=== PATIENT | female | born 1945 | race Caucasian/White ===

== ENCOUNTER 2024-06-27 09:59 | Observation (INO) ==
[~2024-06-27 09:59] MED LIST: NS 0.45% 1000 ml BAG 1,000 ML IV SCH; Naloxone 0.4 mg VIAL 0.4 mg/ml 1 ml VIAL IV PRN; Ondansetron 4 mg VIAL 2 MG/ML 2 ml VIAL IV PRN; ROPIVACAINE 5 MG/ML 30 ML BTL (0.5%) ONE; fentaNYL 100 mcg/2 ml 50 MCG/ML VIAL IV PRN
[2024-06-27] MEDS ORDERED: Dexamethasone IV 4 MG/ML VIAL 1 ml VIAL ONE ×2 (10:08→12:09)
[2024-06-27] MEDS ORDERED: Propofol 10 MG/ML 20 ML BTL ONE ×2 (10:22→14:29)
[2024-06-27] MEDS ORDERED: Midazolam 2 mg/2 ml VIAL 1 mg/ml 2 ml VIAL (2 mg) ONE ×2 (10:22→12:09)
[2024-06-27] MEDS ORDERED: fentaNYL 100 mcg/2 ml 50 MCG/ML VIAL ONE ×2 (10:22→12:09)
[2024-06-27] MEDS ORDERED: Lidocaine 2% PF 5 ML VIAL ONE ×2 (10:23→13:00)
[2024-06-27 10:42] LABS: Rapid COVID-19 Molecular Undetected (Undetected)
[2024-06-27] MEDS ORDERED: ceFAZolin 2 GM PREMIX 2 GM/50 ML BAG ONE (11:05)
[2024-06-27] MEDS ORDERED: Tranexamic Acid 1 GM/100ML BAG 2,000 MG/200 ML BAG IV ONE (11:05)
[2024-06-27] MEDS: Buffered Lidocaine 1% SYRIN 1 ml INTRADERM ONE (11:15)
[2024-06-27] MEDS: Lactated Ringers 1000 ml BAG 1,000 ML IV SCH ×2 (11:15→17:58)
[2024-06-27] MEDS ORDERED: Famotidine IV 10 MG/ML 2 ml VIAL (20 mg) ONE (12:09)
[2024-06-27] MEDS ORDERED: ROPIVACAINE 5 MG/ML 30 ML BTL (0.5%) ONE (12:09)
[2024-06-27] MEDS ORDERED: Metoclopramide 5 MG/ML VIAL (10 mg) ONE (13:17)
[2024-06-27] MEDS ORDERED: Ondansetron 4 mg VIAL 2 MG/ML 2 ml VIAL IV PRN (15:30)
[2024-06-27] MEDS ORDERED: Lactulose 30 ml UDC PO PRN (15:30)
[2024-06-27] MEDS ORDERED: Morphine 2 MG/ML SYRINGE IV PRN (15:30)
[2024-06-27] MEDS ORDERED: Calcium Carb (TUMS) 500 mg CHEW TAB PO PRN (15:30)
[2024-06-27] MEDS ORDERED: Ondansetron ODT 4 mg TAB 4 MG TAB PO PRN (15:30)
[2024-06-27] MEDS ORDERED: Magnesium Hydroxide LIQ 30 ML UDC PO PRN (15:30)
[2024-06-27] MEDS: Acetaminophen IV 1 GM/100ML 1,000 MG/100 ML BAG IV ONE (16:25)
[2024-06-27] MEDS: ceFAZolin 2 GM PREMIX 2 GM/50 ML BAG IV SCH (21:47)
[2024-06-27] MEDS: Venlafaxine XR 75 mg PO SCH (21:49)
[2024-06-28] MEDS: Magnesium Hydroxide LIQ 30 ML UDC PO SCH (02:31)
[2024-06-28 06:08] LABS: Hematocrit 41.4 % (35-45); Hemoglobin 13.8 g/dL (11.5-14.3); Mean Platelet Volume 8.4 fL (7.5-11.2); Platelet Count 197 10^3/uL (150-450)
[2024-06-28 06:34] LABS: Calcium 8.7 mg/dL (8.6-10.3); Creatinine, Serum 0.71 mg/dL (0.51-0.95); Potassium 4.6 mmol/L (3.5-5.0); eGFR CKD-EPI 85.4 (>60)
[2024-06-28] MEDS: Vitamin THERAPEUTIC TAB PO SCH (11:24)
[2024-06-28] MEDS: Fluticasone NASAL SPRAY 50MCG 16 gm SPRAY BTL INTRANASAL SCH (11:25)
[2024-06-28] MEDS: [UNRECOGNIZED DRUG - REMARK] PO SCH (11:25)
[2024-06-28] MEDS: Influenza Vaccine *TRI* 2024-25* 0.5 ML SYRINGE IM ONE (11:27)
[2024-06-28 13:55] VITALS: BP 119/79
== END 2024-06-28 15:00 | disposition home or self-care (01) ==
LOC: OR 09:59 → SSU 09:59
PROVIDERS: ADMIT Orthopaedic Surgery Adult Reconstructive Orthopaedic Surgery; ATTEND Orthopaedic Surgery Adult Reconstructive Orthopaedic Surgery

== ENCOUNTER 2024-06-30 15:58 | Observation (INO) ==
[2024-06-30 17:27] LABS: ABS Basophils 0.1 10^3/uL (0.0-0.1); ABS Lymphocytes 0.3 10^3/uL (1.0-4.8); ABS Monocytes 0.7 10^3/uL (0.0-0.9); ABS Neutrophils 13.4 10^3/uL (1.5-7.6); Hematocrit 42.7 % (35-45); Hemoglobin 14.4 g/dL (11.5-14.3); Lymphocyte % 2.4 %; Mean Corpuscular Hemoglobin 31.6 pg (27-33); Mean Corpuscular Hgb Conc 33.7 g/dL (31-36); Mean Corpuscular Volume 93.8 fL (80-97); Mean Platelet Volume 8.4 fL (7.5-11.2); Platelet Count 252 10^3/uL (150-450); Red Blood Count 4.55 10^6/uL (3.63-4.92); Red Cell Distribution Width 14.3 % (12-17); White Blood Count 14.5 10^3/uL (3.8-11.8)
[2024-06-30] MEDS: Ondansetron 4 mg VIAL 2 MG/ML 2 ml VIAL IV ONE (17:35)
[2024-06-30] MEDS: NS 0.9% 1000 ml BAG 1,000 ML IV ONE ×2 (17:59→21:31)
[2024-06-30 18:01] LABS: Albumin 3.9 g/dL (3.2-5.2); Albumin/Globulin Ratio 1.8 (1-3); C Reactive Protein 250.34 mg/L (<8.01); Calcium 9.1 mg/dL (8.6-10.3); Creatinine, Serum 0.6 mg/dL (0.51-0.95); Globulin 2.2 g/dL (2-4); Magnesium 1.8 mg/dL (1.9-2.7); Potassium 3.6 mmol/L (3.5-5.0); Total Bilirubin 1.1 mg/dL (0.2-1.0); Total Protein 6.1 g/dL (6.4-8.9); eGFR CKD-EPI 90.1 (>60)
[2024-06-30] MEDS: Pantoprazole VIAL 40 MG VIAL IV ONE (18:03)
[2024-06-30 19:44] LABS: Urine Appearance Clear; Urine Bilirubin Negative (Negative); Urine Blood Negative (Negative); Urine Color Light-Yellow; Urine Glucose Negative (Negative); Urine Ketones 1+ (Negative); Urine Nitrite Negative (Negative); Urine Protein Negative (Negative); Urine Specific Gravity 1.011 (1.002-1.030); Urine Urobilinogen Negative (Negative)
[2024-06-30] MEDS: Iohexol 300 (CONTRAST) 10 ML SDV IV ONE (20:44)
[2024-06-30] MEDS: Magnesium Sulfate 2 gm BAG 2 GM/50 ML BAG IVPB ONE (20:58)
[2024-06-30] MEDS: Droperidol 5 MG/2 ML 2 ML VIAL IV ONE (21:27)
[2024-06-30] MEDS: Pantoprazole 80 mg in NS BAG 80 MG/250 ML BAG IV ONE (21:52)
[2024-06-30 23:02] LABS: Hematocrit 36.7 % (35-45); Hemoglobin 12.6 g/dL (11.5-14.3)
[2024-07-01] MEDS: Ondansetron 4 mg VIAL 2 MG/ML 2 ml VIAL IV ONE (00:16)
[2024-07-01] MEDS ORDERED: Ondansetron 4 mg VIAL 2 MG/ML 2 ml VIAL IV PRN (00:18)
[2024-07-01] MEDS ORDERED: Morphine 2 MG/ML SYRINGE IV PRN (00:31)
[2024-07-01] MEDS ORDERED: Pantoprazole VIAL 40 MG VIAL IV SCH (01:00)
[2024-07-01] MEDS: Magnesium Hydroxide LIQ 30 ML UDC PO ONE (01:00)
[2024-07-01] MEDS: PEG 3000 GI LAVAGE 1 GALLON PO ONE (01:31)
[2024-07-01] MEDS: hydrALAZINE 20 mg/ml 1 ML Vial IV IV SLOW PU PRN ×2 (03:58→09:13)
[2024-07-01] MEDS ORDERED: Fluticasone NASAL SPRAY 50MCG 16 gm SPRAY BTL INTRANASAL SCH (09:00)
[2024-07-01] MEDS: Pantoprazole VIAL 40 MG VIAL IV SCH (09:13)
[2024-07-01 09:42] LABS: ABS Eosinophils 0.1 10^3/uL (0.0-0.5); ABS Lymphocytes 0.6 10^3/uL (1.0-4.8); Hematocrit 38.9 % (35-45); Lymphocyte % 4.8 %; Mean Corpuscular Hemoglobin 31.3 pg (27-33); Mean Corpuscular Hgb Conc 33.5 g/dL (31-36); Mean Corpuscular Volume 93.6 fL (80-97); Mean Platelet Volume 8.4 fL (7.5-11.2); Platelet Count 265 10^3/uL (150-450); Red Blood Count 4.15 10^6/uL (3.63-4.92); Red Cell Distribution Width 14.6 % (12-17); White Blood Count 11.6 10^3/uL (3.8-11.8)
[2024-07-01 10:29] LABS: Calcium 8.3 mg/dL (8.6-10.3); Creatinine, Serum 0.58 mg/dL (0.51-0.95); Potassium 3.6 mmol/L (3.5-5.0); eGFR CKD-EPI 90.9 (>60)
[2024-07-01 15:16] VITALS: BP 164/83
[2024-07-01] MEDS ORDERED: Venlafaxine XR 75 mg PO SCH (21:00)
== END 2024-07-01 16:20 | disposition home or self-care (01) ==
LOC: EDHOLD 15:58 → ED 15:58 → SUATTDRO 07-01 00:19 → MED 07-01 01:53
PROVIDERS: ADMIT Internal Medicine; ATTEND Student in an Organized Health Care Education/Training Program